=== PATIENT | female | born 1990 | race Caucasian/White ===

== ENCOUNTER → 2021-02-02 | Outpatient (REF) | payer OTHER | LOC: M LAB REF 15:17 | PROVIDERS: ATTEND Physician Assistant | DX: N39.0 Urinary tract infection, site not specified (principal) ==

== ENCOUNTER → 2023-07-06 | Outpatient (REF) | payer OTHER | LOC: M LAB REF 15:46 | PROVIDERS: ATTEND Physician Assistant | DX: R30.0 Dysuria (principal) ==